=== PATIENT | male | born 1990 | race Caucasian/White ===

== ENCOUNTER 2019-09-17 06:03 | Emergency (ER) | payer OTHER ==
[2019-09-17 06:12] VITALS: RESP 18; TEMP 98
[2019-09-17] MEDS ORDERED: MORPHINE SULFATE 4 MG/ML SYRINGE IVP STA (06:18)
[2019-09-17] MEDS ORDERED: ONDANSETRON 4 MG/2 ML VIAL IVP STA (06:18)
[2019-09-17] MEDS ORDERED: SODIUM CHLORIDE 0.9% 1,000 ML IV ONE (06:18)
[2019-09-17 06:35] LABS: Basophils # (A) 0.1 k/uL (0-0.2); Basophils % (A) 2 %; Eosinophils # (A) 0.1 k/uL (0-0.7); Eosinophils % (A) 1 %; HCT 41.9 % (39.0-53.0); HGB 14.8 gm/dL (13.0-17.5); Lymphocytes # (A) 2.6 k/uL (1.0-4.8); Lymphocytes % (A) 35 %; MCH 31.1 pg (25.0-35.0); MCHC 35.4 g/dL (31.0-37.0); MCV 87.8 fL (80.0-100.0); Mean Platelet Volume 6.1; Monocytes # (A) 0.5 k/uL (0-1.0); Monocytes % (A) 7 %; Neutrophils # (A) 3.9 k/uL (1.3-7.7); Neutrophils % (A) 53 %; Platelet Count 233 k/uL (150-450); RBC 4.77 m/uL (4.30-5.90); RDW 13.1 % (11.5-15.5); WBC 7.4 k/uL (3.8-10.6)
[2019-09-17 06:44] LABS: ALT 105 U/L (21-72); AST 54 U/L (17-59); African American GFR (CKD) >90 (>60 ml/min/1.73 sqM); Albumin 4.1 g/dL (3.5-5.0); Alkaline Phosphatase 68 U/L (38-126); Anion Gap 11 mmol/L; Blood Urea Nitrogen 11 mg/dL (9-20); Calcium 8.9 mg/dL (8.4-10.2); Carbon Dioxide 24 mmol/L (22-30); Chloride 108 mmol/L (98-107); Glucose 89 mg/dL (74-99); Non-African American GFR(CKD) >90 (>60 ml/min/1.73 sqM); Potassium 3.8 mmol/L (3.5-5.1); Sodium 143 mmol/L (137-145); Total Bilirubin 0.6 mg/dL (0.2-1.3); Total Protein 7.3 g/dL (6.3-8.2)
[2019-09-17 06:52] LABS: Alcohol 149 mg/dL
--- NOTE | 2019-09-17 06:54 | CT ---
EXAMINATION TYPE: CT brain wo con DATE OF EXAM: 09/17/2019 COMPARISON: None HISTORY: Sudden onset headache. ETOH CT DLP: 2559.6 mGycm. Automated Exposure Control for Dose Reduction was Utilized. TECHNIQUE: CT scan of the head is performed without contrast. FINDINGS: Ventricles have normal size. There is no mass effect nor midline shift. There is no sign of intracranial hemorrhage. There is no evidence of cerebral edema. The calvarium is intact. There is some mild mucosal thickening in the ethmoid sinuses. IMPRESSION: There is some ethmoid sinusitis. No acute intracranial abnormality.
[2019-09-17] MEDS ORDERED: diphenhydrAMINE 50 MG/ML 1 ML VIAL IVP STA (06:57)
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
[2019-09-17 07:51] VITALS: BP 126/72; PULSE 94
== END 2019-09-17 07:50 | disposition home or self-care (01) ==
LOC: EC 06:03
DX: G44.309 Post-traumatic headache, unspecified, not intractable (principal); F10.129 Alcohol abuse with intoxication, unspecified; F17.200 Nicotine dependence, unspecified, uncomplicated
CPT/HCPCS: 36415; 80053; 85025; 80320; 70450; 99284; 96374; 96375 ×2; 96361; J2270; J1200; J2405

== ENCOUNTER 2020-04-12 13:31 | Emergency (ER) | payer OTHER ==
[2020-04-12 13:54] VITALS: BP 133/86; PULSE 74; TEMP 98
--- NOTE | 2020-04-12 14:16 | ED ---
Lower Extremity Injury HPI - General Chief Complaint: Extremity Injury, Lower Stated Complaint: Foot injury Source: patient Mode of arrival: wheelchair Limitations: physical limitation - History of Present Illness Initial Comments: Patient is a 30-year-old male presenting to emergency Department with a chief complaint of right foot pain. Patient states he was using machine to grind a tree stump when it hit an underground pipe and a piece flew into his foot. Patient states most of the pain is located on the lateral aspect her right foot. He also reports some midfoot tenderness. States he is not able to fully move any of his toes in the right foot except for the hallux. Patient does report a tingling sensation but denies any numbness. Denies any ecchymotic regions or erythema. Denies any lacerations or abrasions. Denies any swelling. Denies taking medication to alleviate the symptoms. - Related Data Allergies Allergy/AdvReac Type Severity Reaction Status Date / Time morphine Allergy Dyspnea Verified 04/12/20 13:55 Penicillins Allergy Unknown Verified 04/12/20 13:55 Childhood Review of Systems ROS Statement: Those systems with pertinent positive or pertinent negative responses have been documented in the HPI. ROS Other: All systems not noted in ROS Statement are negative. Past Medical History Past Medical History: No Reported History History of Any Multi-Drug Resistant Organisms: None Reported Past Surgical History: Orthopedic Surgery Additional Past Surgical History / Comment(s): jaw sx, Left hip x3, Right knee, Right hand, left shoulder Past Psychological History: No Psychological Hx Reported Smoking Status: Current every day smoker Past Alcohol Use History: Occasional Past Drug Use History: None Reported General Exam Limitations: physical limitation General appearance: alert, in no apparent distress Head exam: Present: atraumatic, normocephalic, normal inspection Eye exam: Present: normal appearance, PERRL, EOMI Pupils: Present: normal accommodation ENT exam: Present: normal exam, normal oropharynx, mucous membranes moist. Absent: TM's normal bilaterally, normal external ear exam Neck exam: Present: normal inspection, full ROM. Absent: tenderness Respiratory exam: Present: normal lung sounds bilaterally. Absent: respiratory distress, wheezes, rales Cardiovascular Exam: Present: regular rate, normal rhythm, normal heart sounds. Absent: bradycardia, tachycardia Extremities exam: Present: normal inspection, tenderness (Midfoot and fifth metatarsal tenderness. No medial lateral malleoli tenderness.), normal capillary refill, other (+2 dorsalis pedis and posterior tibialis bilaterally. Sensation intact.). Absent: full ROM (Limited range of motion with plantar and dorsiflexion.), joint swelling Back exam: Present: normal inspection, full ROM. Absent: tenderness Neurological exam: Present: alert, oriented X3 Psychiatric exam: Present: normal affect, normal mood Skin exam: Present: warm, dry, intact, normal color Course Vital Signs 04/12/20 13:49 Temperature 98 F Pulse Rate 74 Respiratory 18 Rate Blood Pressure 133/86 O2 Sat by Pulse 98 Oximetry Medical Decision Making - Medical Decision Making Patient is a 30-year-old male presenting to the emergency department with a chief complaint of right foot pain. On exam patient is limited range of motion with plantar dorsiflexion. There was no signs of trauma. No detectable swelling, erythema or ecchymosis. Neurovascularly intact. X-ray reveals no signs of fractures or dislocations. Patient was offered analgesia, he declined. Patient requesting crutches. Return parameters were thoroughly discussed the patient was understanding and agreeable. Case discussed with physician. Disposition Clinical Impression: Right foot injury, Right foot pain Disposition: HOME SELF-CARE Condition: Stable Instructions (If sedation given, give patient instructions): Foot Contusion (ED) Additional Instructions: Apply cold compress an alternate between Tylenol and Motrin for pain control. Return to emergency department if symptoms worsen. Follow with primary care. Is patient prescribed a controlled substance at d/c from ED?: No Referrals: [facility],Clinic [Primary Care Provider] - 1-2 days Time of Disposition: 14:52
--- NOTE | 2020-04-12 14:44 | XR ---
EXAMINATION TYPE: XR foot complete RT DATE OF EXAM: 04/12/2020 CLINICAL HISTORY: Injury with pain. TECHNIQUE: Frontal, lateral, and oblique images of the right foot are obtained. COMPARISON: None FINDINGS: There is no acute fracture/dislocation evident in the right foot. The joint spaces in the right foot appear within normal limits. The overlying soft tissue appears unremarkable. IMPRESSION: There is no acute fracture or dislocation in the right foot.
[2020-04-12 15:20] VITALS: RESP 17
== END 2020-04-12 15:20 | disposition home or self-care (01) ==
LOC: EC 13:31
DX: S99.921A Unspecified injury of right foot, initial encounter (principal); M79.671 Pain in right foot; R20.2 Paresthesia of skin; F17.200 Nicotine dependence, unspecified, uncomplicated; Z88.0 Allergy status to penicillin; Z88.5 Allergy status to narcotic agent; W22.8XXA Striking against or struck by other objects, initial encounter; Y93.89 Activity, other specified; Y92.89 Other specified places as the place of occurrence of the external cause
CPT/HCPCS: 99283

== ENCOUNTER 2020-11-06 15:41 | Emergency (ER) | payer OTHER ==
[2020-11-06 15:58] VITALS: BP 145/78; PULSE 80; RESP 18; TEMP 98.5
[2020-11-06] MEDS ORDERED: ACET/COD 300 MG/30 MG STARTER PACK 6 TAB BTL PO STA (16:15)
--- NOTE | 2020-11-06 16:28 | XR ---
EXAMINATION TYPE: XR forearm RT DATE OF EXAM: 11/06/2020 COMPARISON: NONE HISTORY: Pain Two views of the forearm demonstrate that the osseous structures appear to be intact and the joint sp aces appear to be preserved. There is no acute fracture or dislocation. IMPRESSION: 1. No acute fracture or dislocation
--- NOTE | 2020-11-06 16:30 | XR ---
EXAMINATION TYPE: XR hand complete RT DATE OF EXAM: 11/06/2020 COMPARISON: NONE HISTORY: Pain TECHNIQUE: Three views are submitted. FINDINGS: The osseous structures are intact. The joint spaces are preserved and there is no acute fracture or dislocation. Benign-appearing cyst involving the head of the third metacarpal. There is a radiopaque foreign body along the volar surface adjacent to the distal phalanx of the first digit IMPRESSION: 1. No definite acute fracture or dislocation if symptoms persist, follow-up study in 7 to 10 days wo uld be suggested. 2. Linear foreign body in the subcutaneous tissues adjacent to the distal phalanx of the first digit
--- NOTE | 2020-11-06 17:01 | ED ---
Upper Extremity HPI - General Chief Complaint: Extremity Injury, Upper Stated Complaint: Arm injury Time Seen by Provider: 11/06/20 16:00 Source: patient, family Mode of arrival: ambulatory Limitations: no limitations - History of Present Illness Initial Comments: 30 oh male presenting today for chief complaint of right forearm pain. Patient states he crushed his right forearm between a sliding machine that was on ice and nother object. he states that the object and him slide 10-15 ft when the machine crushed his forearm. he states it is very tender to move fingers,but he is able to do so. he states he can feel his hand distal to the injury. pt denies injury to chest, shoulder, elbow, abdomen, head, neck or additional areas. admits to pain in hand, wrist and forearm all right sided. pt right hand dominant. - Related Data Allergies Allergy/AdvReac Type Severity Reaction Status Date / Time morphine Allergy Dyspnea Verified 11/06/20 15:58 Penicillins Allergy Unknown Verified 11/06/20 15:58 Childhood Review of Systems ROS Statement: Those systems with pertinent positive or pertinent negative responses have been documented in the HPI. ROS Other: All systems not noted in ROS Statement are negative. Past Medical History Past Medical History: No Reported History History of Any Multi-Drug Resistant Organisms: None Reported Past Surgical History: Orthopedic Surgery Additional Past Surgical History / Comment(s): jaw sx, Left hip x3, Right knee, Right hand, left shoulder Past Psychological History: No Psychological Hx Reported Smoking Status: Current some day smoker Past Alcohol Use History: Occasional Past Drug Use History: None Reported General Exam - General Exam Comments Initial Comments: General: The patient is awake and alert, in no distress Eye: +3 mm pupils are equal, round and reactive to light, extra-ocular movements are intact. No nystagmus. There is normal conjunctiva bilaterally. No signs of icterus. Ears, nose, mouth and throat: There are moist mucous membranes and no oral lesions. Neck: The neck is supple, there is no tenderness or JVD. Cardiovascular: There is a regular rate and rhythm. No murmur, rub or gallop is appreciated. Respiratory: Lungs are clear to auscultation, respirations are non-labored, breath sounds are equal. No wheezes, stridor, rales, or rhonchi. Gastrointestinal: Soft, non-distended, non-tender abdomen without masses or organomegaly noted. There is no rebound or guarding present. Musculoskeletal: on inspection slight indent mid/distal forearm, comparments are very soft and compressible no pain out of proportion. Normal ROM at the wrist with tenderness. tenderness to palpation of the ulnar aspect, no snuffbox tenderness. Strength 5/5 at shoulder elnow and wrist of affected side, equal in unaffected extremity. Sensation intact proximal and distal to injury site. Radial pulses equal bilaterally 2+. Pt is able to range at MCP, DIP and PIP joitns with extnesion and flexion of all 5 digits of the right hand. Neurological: A&O x 3. CN II-XII intact grossly, There are no obvious motor or sensory deficits. Coordination appears grossly intact. Speech is normal. Skin: Skin is warm and dry and no rashes or lesions are noted. Psychiatric: Cooperative, appropriate mood & affect, normal judgment. Limitations: no limitations Course Vital Signs 11/06/20 15:53 Temperature 98.5 F Pulse Rate 80 Respiratory 18 Rate Blood Pressure 145/78 O2 Sat by Pulse 96 Oximetry Medical Decision Making - Medical Decision Making 30yo presenting for crush injury right forearm. XR (-). wrist pain on exam. splinted to in case of occult carpal fracture. pt is to f/u with orthopedic surgery and keep splint in place. pt otherwise shows no clinical findings suggestive of compartment syndrome. She neurovascularly intact. She states he felt better after splinting and was neurovascular intact after the forms pre- patted synthetic splint was applied short arm right wrist/forearm. discussed case wt Dr Gamez who was agreeable to care plan No laceration, thumb foreign body old. Disposition Clinical Impression: Forearm pain, Crushing injury of right forearm, Wrist pain, right Disposition: HOME SELF-CARE Condition: Good Instructions (If sedation given, give patient instructions): Wrist Injury (ED) Additional Instructions: Please use medication as discussed. Please follow-up with family doctor in the next 2 days, if wrist pain persistent please seek orthopedic follow-up. Please return to emergency room if the symptoms increase or worsen or for any other concerns. Is patient prescribed a controlled substance at d/c from ED?: No Referrals: [facility],Clinic [Primary Care Provider] - 1-2 days Sung Pastrana, PAC [PHYSICIAN [employer]] - 1-2 days
== END 2020-11-06 17:22 | disposition home or self-care (01) ==
LOC: EC 15:41
DX: S57.81XA Crushing injury of right forearm, initial encounter (principal); M25.531 Pain in right wrist; F17.200 Nicotine dependence, unspecified, uncomplicated; Z88.0 Allergy status to penicillin; Z88.6 Allergy status to analgesic agent; W23.0XXA Caught, crushed, jammed, or pinched between moving objects, initial encounter; Y92.89 Other specified places as the place of occurrence of the external cause
CPT/HCPCS: 29125; 99283

== ENCOUNTER 2021-01-29 09:09 | Emergency (ER) | payer OTHER ==
[2021-01-29 09:29] VITALS: RESP 18
[2021-01-29] MEDS ORDERED: KETOROLAC 15 MG/ML 1 ML VIAL IM STA (10:09)
[2021-01-29] MEDS ORDERED: CYCLOBENZAPRINE 10 MG TAB PO STA (10:09)
--- NOTE | 2021-01-29 10:13 | ED ---
Back Pain HPI - General Chief Complaint: Back Pain/Injury Stated Complaint: Back Pain Time Seen by Provider: 01/29/21 09:52 Source: patient, family, RN notes reviewed Limitations: no limitations - History of Present Illness Initial Comments: Patient is a 30-year-old male that presents to the emergency department complaining of low back pain bilaterally with difficulty standing up straight due to tightness and pain which results in difficulty walking. He notes that he does have a recent history of [id number] riding but doesn't report that the right was super bumpy or thrush them around. He did note that he also tried changing the track on their little skid steer at work using a crowbar and was twisting and applying the smoke pressure to track up. He states that the pain is a 9 out of 10 constant. He reports a high pain tolerance and trigona work today but called his significant other to the hospital to make sure nothing was seriously wrong. He denied any radiation down his legs bladder or bowel incontinence decreased strength in the legs chest pain shortness of breath headache nausea vomiting diarrhea constipation - Related Data Home Medications Medication Instructions Recorded Confirmed Ibuprofen [Motrin Ib] 200 mg PO Q8H PRN 01/29/21 01/29/21 Previous Rx's Medication Instructions Recorded Ibuprofen [Motrin] 800 mg PO Q6HR #30 tab 01/29/21 predniSONE 50 mg PO DAILY 5 Days #5 tab 01/29/21 Allergies Allergy/AdvReac Type Severity Reaction Status Date / Time morphine Allergy Anaphylaxis Verified 01/29/21 10:27 Penicillins Allergy Unknown Verified 01/29/21 10:27 Childhood Review of Systems ROS Statement: Those systems with pertinent positive or pertinent negative responses have been documented in the HPI. ROS Other: All systems not noted in ROS Statement are negative. Past Medical History Past Medical History: No Reported History History of Any Multi-Drug Resistant Organisms: None Reported Past Surgical History: Orthopedic Surgery Additional Past Surgical History / Comment(s): jaw sx, Left hip x3, Right knee, Right hand, left shoulder Past Psychological History: No Psychological Hx Reported Smoking Status: Current some day smoker Past Alcohol Use History: Occasional Past Drug Use History: None Reported General Exam Limitations: no limitations General appearance: alert, in no apparent distress Head exam: Present: atraumatic, normocephalic, normal inspection Eye exam: Present: normal appearance, PERRL, EOMI. Absent: scleral icterus, conjunctival injection, periorbital swelling ENT exam: Present: normal exam, mucous membranes moist Neck exam: Present: normal inspection. Absent: tenderness, meningismus, lymphadenopathy Respiratory exam: Present: normal lung sounds bilaterally. Absent: respiratory distress, wheezes, rales, rhonchi, stridor Cardiovascular Exam: Present: regular rate, normal rhythm, normal heart sounds. Absent: systolic murmur, diastolic murmur, rubs, gallop, clicks GI/Abdominal exam: Present: soft, normal bowel sounds. Absent: distended, tenderness, guarding, rebound, rigid Extremities exam: Present: normal inspection, full ROM, normal capillary refill, other (Hip level on even while standing). Absent: tenderness, pedal edema, joint swelling, calf tenderness Back exam: Present: normal inspection, paraspinal tenderness (Bilaterally in the lumbar spine area). Absent: full ROM (Due to pain and muscle tightness), vertebral tenderness Neurological exam: Present: alert, oriented X3, CN II-XII intact Psychiatric exam: Present: normal affect, normal mood Skin exam: Present: warm, dry, intact, normal color. Absent: rash Course Vital Signs 01/29/21 09:25 Temperature 98.1 F Pulse Rate 91 Respiratory 18 Rate Blood Pressure 136/90 O2 Sat by Pulse 100 Oximetry Medical Decision Making - Medical Decision Making 30-year-old male with bilateral low back pain. Lumbar spine and bilateral hip x-ray, 15 mg of Toradol, 10 mg of cyclobenzaprine, 125 mg of methylprednisolone ordered. X-rays negative for any acute fractures dislocations. Case discussed with Dr. Roblero, patient can discharge home with follow-up to primary care. - Radiology Data Radiology results: report reviewed, image reviewed X-ray of the lumbar spine: No acute fracture dislocation is seen the lumbar spine. X-ray of the bilateral hips: No acute fractures or dislocations seen. Disposition Clinical Impression: Strain of lumbar region Disposition: HOME SELF-CARE Condition: Stable Instructions (If sedation given, give patient instructions): Acute Low Back Pain (ED) Additional Instructions: Please return to the Emergency Department if symptoms worsen or any other concerns. Please follow-up with primary care, get a referral for chiropractic and physical therapy if needed. Take prescriptions as prescribed, prednisone and Motrin 100% pharmacy. Avoid any strenuous activity, twisting, bending, lifting. Rest ice compress area and Is patient prescribed a controlled substance at d/c from ED?: No Referrals: [facility],Clinic [Primary Care Provider] - 1-2 days Time of Disposition: 11:45
[2021-01-29] MEDS ORDERED: methylPREDNISolone SOD SUCCI 125 MG/2 ML VIAL IM ONE (11:12)
--- NOTE | 2021-01-29 11:31 | XR ---
EXAMINATION TYPE: XR lumbar spine 2 or 3V DATE OF EXAM: 01/29/2021 CLINICAL HISTORY: pain TECHNIQUE: Three views of the lumbar spine are submitted. COMPARISON: None. FINDINGS: There are 5 lumbar type vertebral bodies identified. The lumbar spine shows satisfactory alignment w ithout evidence of acute fracture or dislocation. Vertebral body heights are within normal limits. Disc spaces are within normal limits. The overlying soft tissue appears unremarkable. IMPRESSION: No acute fracture or dislocation is seen in the lumbar spine. ICD 10 NO FRACTURE, INITIAL EVALUATION
--- NOTE | 2021-01-29 11:32 | XR ---
EXAMINATION TYPE: XR Hip Bilateral and AP pelvis DATE OF EXAM: 01/29/2021 CLINICAL HISTORY: pain COMPARISON: 07/15/1712 TECHNIQUE: Single view the pelvis is submitted. Bilateral views of the hips are also submitted. FINDINGS: No evidence for fracture, dislocation or bony lesion. Remote avulsion fracture involving t he lesser trochanter on the left is again noted. Joint spaces are well-preserved. SI joints appear s ymmetric. IMPRESSION: 1. No acute fracture or dislocation seen. ICD 10 NO FRACTURE, INITIAL EVALUATION
[2021-01-29 12:05] VITALS: BP 128/73; PULSE 87; TEMP 98.2
== END 2021-01-29 12:05 | disposition home or self-care (01) ==
LOC: EC 09:09
DX: S39.012A Strain of muscle, fascia and tendon of lower back, initial encounter (principal); F17.200 Nicotine dependence, unspecified, uncomplicated; Z88.5 Allergy status to narcotic agent; Z88.0 Allergy status to penicillin; X50.9XXA Other and unspecified overexertion or strenuous movements or postures, initial encounter
CPT/HCPCS: 96372 ×2; 99283; 72100; 73521; J2930; J1885

== ENCOUNTER 2022-04-21 12:13 | Emergency (ER) | payer OTHER ==
[2022-04-21 12:23] VITALS: BP 141/83; PULSE 80; RESP 16; TEMP 97.7
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
[2022-04-21] MEDS ORDERED: KETOROLAC 15 MG/ML 1 ML VIAL IM STA (15:13)
[2022-04-21] MEDS ORDERED: HYDROcodone/APAP 5-325MG 1 EACH TAB PO STA (15:13)
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
== END 2022-04-21 16:25 | disposition home or self-care (01) ==
LOC: EC 12:13
DX: S30.1XXA Contusion of abdominal wall, initial encounter (principal); S70.02XA Contusion of left hip, initial encounter; F17.200 Nicotine dependence, unspecified, uncomplicated; V86.59XA Driver of other special all-terrain or other off-road motor vehicle injured in nontraffic accident, initial encounter; Y92.410 Unspecified street and highway as the place of occurrence of the external cause
CPT/HCPCS: 72100; 73502; 74177; 99284; 96372; J1885; Q9967; 96374

== ENCOUNTER → 2022-07-31 | Outpatient (CLI) | payer OTHER ==
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
== END | disposition home or self-care (01) ==
LOC: RADMRIMAIN 09:35
PROVIDERS: ATTEND Orthopaedic Surgery
DX: S83.242A Other tear of medial meniscus, current injury, left knee, initial encounter (principal); S83.412A Sprain of medial collateral ligament of left knee, initial encounter

== ENCOUNTER 2022-08-14 09:12 | Day surgery (SDC) | payer OTHER ==
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
[2022-08-13 11:17] VITALS: BMI 29.5
[~2022-08-14 09:12] MED LIST: DEXAMETHASONE SOD PHOSPHATE 4 MG/ML 1 ML VIAL IV ONE; LACTATED RINGERS 1,000 ML IV SCH; LIDOCAINE 1% (10MG/ML) FOR IV START INTRADERMA PRN; MIDAZOLAM 2 MG/2 ML VIAL IV PRN; ONDANSETRON 4 MG/2 ML VIAL IVP ONE
[2022-08-14] MEDS ORDERED: fentaNYL (PF) 50 MCG/ML 2 ML AMP ONE (11:25)
[2022-08-14] MEDS ORDERED: PROPOFOL 10 MG/ML 20 ML VIAL IV ONE (11:25)
[2022-08-14] MEDS ORDERED: HYDROmorphone (PF) 1 MG/ML ONE (11:25)
[2022-08-14] MEDS ORDERED: MIDAZOLAM 2 MG/2 ML VIAL ONE (11:25)
[2022-08-14] MEDS ORDERED: LIDOCAINE 2% INJ 20 MG/ML (2 ML VIAL) ONE (11:25)
[2022-08-14] MEDS ORDERED: LACTATED RINGERS 1,000 ML IV ONE (11:53)
[2022-08-14] MEDS ORDERED: EPINEPHrine (PF) 1 ML in SODIUM CHLORIDE 0.9% IRRIGATIO 3,000 ML IRRIGATION ONE (11:56)
--- NOTE | 2022-08-14 12:16 | P.OP ---
Date of Procedure: 08/14/22 Preoperative Diagnosis: Left knee internal derangement Postoperative Diagnosis: Left knee posterior medial meniscal tear Procedure(s) Performed: Left knee arthroscopic partial medial meniscectomy Anesthesia: ROSETTAA Surgeon: Berlin Mathur Estimated Blood Loss (ml): 10 Pathology: none sent Condition: stable Disposition: PACU Indications for Procedure: The patient's a 32-year-old male who presents significant left knee pain and mechanical symptoms after a recent injury. Upon evaluation he is noted of evidence of a symptomatic medial meniscal tear. This was confirmed by MRI. A discussion of the risks and benefits of operative intervention was made with patient. He opted to proceed. Operative risks to include infection, neurovascular injury, development of blood clots, possible incomplete resolution of symptoms, possible worsening symptoms and need for subsequent procedures was discussed. Informed consent was obtained. Operative Findings: as below Description of Procedure: The patient was brought to the operating room, and after induction of general anesthesia examined the left knee. Collaterals were stable, Brandee was negative, and posterior drawer was negative. The left lower extremity was prepped and draped in a normal fashion. A superior lateral portal was made through a 3 mm skin incision superior and lateral to the patella. This was used for outflow. A lateral portal was made through a 5 mm vertical skin incision lateral to the patella tendon above the joint line. Diagnostic arthroscopy was performed. On inspection of the medial compartment, and oblique tear involving the posterior portion of the medial meniscus in the white-white junction was noted. This extended from the posterior to middle one third. This was debrided back to stable base with straight baskets and a motorized shaver. The remaining medial meniscus was stable and intact. On inspection of the notch, the anterior cruciate ligament appeared to be intact. On inspection of the lateral compartment, no significant cartilage or meniscal pathology was noted. On inspection of the patellofemoral articulation, there is mild chondromalacia however no loose chondral fragments. The gutters were clear debris. The knee was then thoroughly irrigated. The portals were closed with Steri-Strips. A sterile dressing was applied in addition to a compression stocking. The patient was awoken from general anesthesia and transferred to recovery room in good condition. Blood loss was estimated at 10 mL. No complications were incurred.
[2022-08-14] MEDS: HYDROmorphone 0.5 MG/0.5 ML SYRINGE IVP PRN ×3 (12:24→13:04)
[2022-08-14 12:34] VITALS: TEMP 97
[2022-08-14] MEDS ORDERED: MEPERIDINE 50 MG/ML SYRINGE IVP ONE ×2 (12:34→12:40)
[2022-08-14] MEDS ORDERED: KETOROLAC 15 MG/ML 1 ML VIAL IVP ONE (12:46)
[2022-08-14 13:22] VITALS: RESP 20
[2022-08-14 13:43] VITALS: BP 131/81; PULSE 86
== END 2022-08-14 13:57 | disposition home or self-care (01) ==
LOC: OR 09:12
PROVIDERS: ATTEND Orthopaedic Surgery
DX: S83.242A Other tear of medial meniscus, current injury, left knee, initial encounter (principal); F17.200 Nicotine dependence, unspecified, uncomplicated; F10.10 Alcohol abuse, uncomplicated; Z98.890 Other specified postprocedural states; Z79.899 Other long term (current) drug therapy; Z88.5 Allergy status to narcotic agent; Z88.0 Allergy status to penicillin
CPT/HCPCS: 29881; J2250; J1100; J2175; J0690; J2405; J0171; J3010; J1170 ×2; J1885; J2704; J2001

== ENCOUNTER → 2023-06-03 | Outpatient (CLI) | payer OTHER ==
--- NOTE | 2023-06-04 11:55 | MR ---
EXAMINATION TYPE: MR shoulder RT wo con DATE OF EXAM: 06/03/2023 9:35 PM COMPARISON: NONE HISTORY: Right shoulder pain. TECHNIQUE: Multiplanar multispin echo imaging of the right shoulder was performed. FINDINGS: Rotator cuff : Mild heterogeneity of the supraspinatus tendon compatible chronic tendinopathy. Small focus of increased signal at the insertion of the supraspinatus tendon reflect a tiny partial tear. R emaining constituents of the rotator cuff are intact. Bursa: No bursal effusion or thickening is seen. Musculature: There is no muscular tear, contusion, or atrophy. Acromioclavicular joint : Moderate AC joint arthropathy with lateral downsloping of the acromion resu lting in mild impingement. Osseous structures : There are no fractures or regions of abnormal bone marrow signal intensity. Smal l bone island humeral head. Long biceps tendon : The biceps tendon is normally situated within the bicipital groove. No complete or partial biceps tendon tear is present. Glenohumeral Joint fluid : There is no glenohumeral joint effusion. Cartilage and Bone : No focal hyaline cartilage defects are noted. No Hill-Sachs, reverse Hill-Sachs, or bony Bankart lesions are seen. Labrum : There are no SLAP or soft tissue Bankart lesions. No paralabral cysts are seen. OTHER FINDINGS : none IMPRESSION: 1. Chronic tendinopathy supraspinatus tendon with small partial tear at the humeral insertion of the supraspinatus. Lateral downsloping of the acromion resulting in mild impingement.
== END | disposition home or self-care (01) ==
LOC: RADMRIMAIN 10:08
PROVIDERS: ATTEND Orthopaedic Surgery
DX: M75.111 Incomplete rotator cuff tear or rupture of right shoulder, not specified as traumatic (principal); M25.811 Other specified joint disorders, right shoulder

== ENCOUNTER 2023-12-21 15:02 | Emergency (ER) | payer OTHER ==
[2023-12-21 15:12] VITALS: TEMP 98.1
--- NOTE | 2023-12-21 15:30 | ED ---
General Adult HPI - General Chief complaint: Abdominal Pain Stated complaint: Testicular Pain Time Seen by Provider: 12/21/23 15:11 Source: patient, RN notes reviewed Mode of arrival: ambulatory Limitations: no limitations - History of Present Illness Initial comments: 33 year old male presents to the emergency department for evaluation of testicular pain. He states that this has been ongoing for around 2 weeks. He states that it initially started after lifting something heavy. He states that it subsided temporarily but then he lifted something heavy again at work 2 days ago and the pain has been worse since then. He does note some swelling. Patient also notes frequent bowel movements over the past 2-3 days. Passing flatulence normally. Denies nausea, vomiting. - Related Data Home Medications Medication Instructions Recorded Confirmed HYDROcodone/APAP 5-325MG [[place] 1 tab PO TID PRN 08/13/22 08/14/22 5-325] Previous Rx's Medication Instructions Recorded HYDROcodone/APAP 5-325MG [[place] 1 tab PO Q6HR PRN #21 tab 08/14/22 5-325] Allergies Allergy/AdvReac Type Severity Reaction Status Date / Time bee venom protein (honey bee) Allergy Severe Tongue and Verified 12/21/23 15:08 throat swelling morphine Allergy Anaphylaxis Verified 12/21/23 15:08 Penicillins Allergy Unknown Verified 12/21/23 15:08 Childhood Review of Systems ROS Statement: Those systems with pertinent positive or pertinent negative responses have been documented in the HPI. ROS Other: All systems not noted in ROS Statement are negative. Past Medical History Past Medical History: No Reported History Additional Past Medical History / Comment(s): hepatitis C., Hx of concussions., Injury with pain left knee- wearing immobilizer and using crutches., hx of injuries in [place] with surgeries. History of Any Multi-Drug Resistant Organisms: None Reported Past Surgical History: Orthopedic Surgery Additional Past Surgical History / Comment(s): jaw sx, Left hip x3, Right knee, Right hand, left shoulder., (hx of injuries in [place]) Past Anesthesia/Blood Transfusion Reactions: No Reported Reaction Past Psychological History: No Psychological Hx Reported Smoking Status: Current every day smoker Past Alcohol Use History: Occasional Past Drug Use History: None Reported - Past Family History Mother Family Medical History: No Reported History General Exam Limitations: no limitations General appearance: alert, in no apparent distress Head exam: Present: atraumatic, normocephalic, normal inspection Eye exam: Present: normal appearance, PERRL, EOMI. Absent: scleral icterus, conjunctival injection, periorbital swelling ENT exam: Present: normal exam, mucous membranes moist Neck exam: Present: normal inspection. Absent: tenderness, meningismus, lymphadenopathy Respiratory exam: Present: normal lung sounds bilaterally. Absent: respiratory distress, wheezes, rales, rhonchi, stridor Cardiovascular Exam: Present: regular rate, normal rhythm, normal heart sounds. Absent: systolic murmur, diastolic murmur, rubs, gallop, clicks GI/Abdominal exam: Present: soft, normal bowel sounds. Absent: distended, tenderness, guarding, rebound, rigid exam: Present: testicular tenderness. Absent: urethral discharge, scrotal swelling, vertical testicular lie Extremities exam: Present: full ROM, tenderness (right elbow), other (bursitis to left elbow) Neurological exam: Present: alert, oriented X3 Psychiatric exam: Present: normal affect, normal mood Skin exam: Present: warm, dry, intact, normal color. Absent: rash Course Vital Signs 12/21/23 12/21/23 15:04 18:18 Temperature 98.1 F Pulse Rate 105 H 80 Respiratory 18 16 Rate Blood Pressure 150/99 136/97 O2 Sat by Pulse 97 97 Oximetry Medical Decision Making - Medical Decision Making Was pt. sent in by a medical professional or institution ([facility], CABLE TOOL OPERATOR, urgent care, hospital, or assisted...) When possible be specific @ -No Did you speak to anyone other than the patient for history (EMS, parent, family, police, friend...)? What history was obtained from this source @ -No Did you review nursing and triage notes (agree or disagree)? Why? @ -I reviewed and agree with nursing and triage notes Were old charts reviewed (outside hosp., previous admission, EMS record, old EKG, old radiological studies, urgent care reports/EKG's, assisted records)? Report findings @ -No old charts were reviewed Differential Diagnosis (chest pain, altered mental status, abdominal pain women, abdominal pain men, vaginal bleeding, weakness, fever, dyspnea, syncope, headache, dizziness, GI bleed, back pain, seizure, CVA, palpatations, mental health, musculoskeletal)? @ -Testicular torsion, orchitis, epididymitis, this list is not all inclusive EKG interpreted by me (3pts min.). @ -None X-rays interpreted by me (1pt min.). @ -X-ray of the right elbow shows no evidence of acute fracture CT interpreted by me (1pt min.). @ -None done U/S interpreted by me (1pt. min.). @ -Scrotal ultrasound shows normal blood flow to both testicles, left-sided varicocele What testing was considered but not performed or refused? (CT, X-rays, U/S, labs)? Why? @ -None What meds were considered but not given or refused? Why? @ -None Did you discuss the management of the patient with other professionals (professionals i.e. , PA, CABLE TOOL OPERATOR, lab, RT, psych nurse, social work supervisor, payroll tax analyst, teacher, navigating officer, case making machine operator)? Give summary @ -No Was smoking cessation discussed for >3mins.? @ -No Was critical care preformed (if so, how long)? @ -No Were there social determinants of health that impacted care today? How? (Homelessness, low income, unemployed, alcoholism, drug addiction, transpor tation, low edu. Level, literacy, decrease access to med. care, [facility], rehab)? @ -No Was there de-escalation of care discussed even if they declined (Discuss DNR or withdrawal of care, Hospice)? DNR status @ -No What co-morbidities impacted this encounter? (DM, HTN, Smoking, COPD, CAD, Cancer, CVA, ARF, Chemo, Hep., AIDS, mental health diagnosis, sleep apnea, morbid obesity)? @ -None Was patient admitted / discharged? Hospital course, mention meds given and route, prescriptions, significant lab abnormalities, going to OR and other pertinent info. @ -Discharged. Patient presented to the emergency department for evaluation of testicular pain this has been going on for 2 weeks. He states it is worse after lifting heavy 2 days ago. He reports normal bowel movements and passing flatulence. He denies fever. On examination, there is no visible penile discharge, tenderness to palpation of the testicles. Laboratory studies obtained including CBC, CMP, UA which were unremarkable. Gonorrhea chlamydia in the urine pending. Ultrasound obtained which shows a left-sided varicocele, otherwise unremarkable. Discussed findings with patient. Advised to follow-up with urology. Patient understanding and agreeable with plan. Patient stable at time of discharge. Case discussed with Dr. Morales. Undiagnosed new problem with uncertain prognosis? @ -No Drug Therapy requiring intensive monitoring for toxicity (Heparin, Nitro, Insulin, Cardizem)? @ -No Were any procedures done? @ -No Diagnosis/symptom? @ -Testicular pain, varicoceles Acute, or Chronic, or Acute on Chronic? @ -Acute Uncomplicated (without systemic symptoms) or Complicated (systemic symptoms)? @ -Uncomplicated Side effects of treatment? @ -No Exacerbation, Progression, or Severe Exacerbation? @ -No Poses a threat to life or bodily function? How? (Chest pain, [place], [place], pneumonia, PE, COPD, DKA, ARF, appy, cholecystitis, CVA, Diverticulitis, Homicidal, Suicidal, threat to staff... and all critical care pts) @ -No - Lab Data Result diagrams: 12/21/23 15:29 12/21/23 15:29 Lab Results 12/21/23 12/21/23 12/21/23 Range/Units 15:29 15:29 15:29 WBC 8.8 (3.8-10.6) k/uL RBC 5.30 (4.30-5.90) m/uL Hgb 15.4 (13.0-17.5) gm/dL Hct 45.9 (39.0-53.0) % MCV 86.6 (80.0-100.0) fL MCH 29.0 (25.0-35.0) pg MCHC 33.6 (31.0-37.0) g/dL RDW 13.2 (11.5-15.5) % Plt Count 311 (150-450) k/uL MPV 8.0 Neutrophils % 54 % Lymphocytes % 34 % Monocytes % 7 % Eosinophils % 2 % Basophils % 1 % Neutrophils # 4.7 (1.3-7.7) k/uL Lymphocytes # 3.0 (1.0-4.8) k/uL Monocytes # 0.6 (0-1.0) k/uL Eosinophils # 0.2 (0-0.7) k/uL Basophils # 0.1 (0-0.2) k/uL Sodium 138 (137-145) mmol/L Potassium 4.1 (3.5-5.1) mmol/L Chloride 104 (98-107) mmol/L Carbon Dioxide 25 (22-30) mmol/L Anion Gap 9 mmol/L BUN 13 (9-20) mg/dL Creatinine 0.92 (0.66-1.25) mg/dL Est GFR (CKD-EPI)AfAm >90 (>60 ml/min/1.73 sqM) Est GFR (CKD-EPI)NonAf >90 (>60 ml/min/1.73 sqM) Glucose 96 (74-99) mg/dL Calcium 9.9 (8.4-10.2) mg/dL Total Bilirubin 0.3 (0.2-1.3) mg/dL AST 29 (17-59) U/L ALT 36 (4-49) U/L Alkaline Phosphatase 96 (38-126) U/L Total Protein 7.7 (6.3-8.2) g/dL Albumin 4.5 (3.5-5.0) g/dL Amylase 52 (30-110) U/L Lipase 59 (23-300) U/L Urine Color Light Yellow Urine Appearance Clear (Clear) Urine pH 6.0 (5.0-8.0) Ur Specific [place] 1.017 (1.001-1.035) Urine Protein Negative (Negative) Urine Glucose (UA) Negative (Negative) Urine Ketones Negative (Negative) Urine Blood Negative (Negative) Urine Nitrite Negative (Negative) Urine Bilirubin Negative (Negative) Urine Urobilinogen <2.0 (<2.0) mg/dL Ur Leukocyte Esterase Negative (Negative) Disposition Clinical Impression: Testicular pain, Varicocele Disposition: HOME SELF-CARE Condition: Stable Additional Instructions: Please follow up with urology. Return to the emergency department for new or worsening symptoms. Is patient prescribed a controlled substance at d/c from ED?: No Referrals: [facility],Clinic [REFERRING] - 1-2 days Harpreet Lopez MD [STAFF PHYSICIAN] - 1-2 days
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
[2023-12-21 17:02] LABS: Appearance,Urine Clear (Clear); Bilirubin,Urine Negative (Negative); Blood,Urine Negative (Negative); Color,Urine Light Yellow; Glucose,Urine (UA) Negative (Negative); Ketones,Urine Negative (Negative); Leukocyte Esterase,Urine Negative (Negative); Nitrite,Urine Negative (Negative); Protein,Urine Negative (Negative); Specific Gravity,Urine 1.017 (1.001-1.035); Urobilinogen,Urine <2.0 mg/dL (<2.0)
[2023-12-21 17:04] LABS: Basophils # (A) 0.1 k/uL (0-0.2); Basophils % (A) 1 %; Eosinophils # (A) 0.2 k/uL (0-0.7); Eosinophils % (A) 2 %; HCT 45.9 % (39.0-53.0); HGB 15.4 gm/dL (13.0-17.5); Lymphocytes % (A) 34 %; MCHC 33.6 g/dL (31.0-37.0); MCV 86.6 fL (80.0-100.0); Monocytes # (A) 0.6 k/uL (0-1.0); Monocytes % (A) 7 %; Neutrophils # (A) 4.7 k/uL (1.3-7.7); Neutrophils % (A) 54 %; Platelet Count 311 k/uL (150-450); RDW 13.2 % (11.5-15.5); WBC 8.8 k/uL (3.8-10.6)
[2023-12-21 17:13] LABS: ALT 36 U/L (4-49); AST 29 U/L (17-59); African American GFR (CKD) >90 (>60 ml/min/1.73 sqM); Albumin 4.5 g/dL (3.5-5.0); Alkaline Phosphatase 96 U/L (38-126); Amylase 52 U/L (30-110); Anion Gap 9 mmol/L; Blood Urea Nitrogen 13 mg/dL (9-20); Calcium 9.9 mg/dL (8.4-10.2); Carbon Dioxide 25 mmol/L (22-30); Chloride 104 mmol/L (98-107); Glucose 96 mg/dL (74-99); Lipase 59 U/L (23-300); Non-African American GFR(CKD) >90 (>60 ml/min/1.73 sqM); Potassium 4.1 mmol/L (3.5-5.1); Sodium 138 mmol/L (137-145); Total Bilirubin 0.3 mg/dL (0.2-1.3); Total Protein 7.7 g/dL (6.3-8.2)
--- NOTE | 2023-12-21 17:23 | US ---
EXAMINATION TYPE: US scrotum with doppler. Grayscale and color Doppler Duplex imaging performed of aguila barillas scrotum. DATE OF EXAM: 12/21/2023 COMPARISON: NONE CLINICAL INDICATION: Male, 33 years old with history of pain, swelling; Rt testicle pain x 2 weeks, w orse last night EXAM MEASUREMENTS: TESTICLES: Right Testicle: 4.0x2.5x3.1 cm Left Testicle: 4.2x2.3x2.8 cm EPIDIDYMIS HEAD: Right Epididymis: 0.8 cm Left Epididymis: 1.3 cm Doppler performed to assess for testicular vascularity; good bilateral color flow and waveforms are s een. There is no evidence of testicular torsion. Presence of hydroceles: no Presence of varicoceles: left side IMPRESSION: 1. No intratesticular mass. 2. No testicular torsion. 3. No epididymal abnormalities 3. Small left varicocele.
[2023-12-21] MEDS: KETOROLAC 15 MG/ML 1 ML VIAL IVP STA (17:38)
[2023-12-21 18:33] VITALS: BP 136/97; PULSE 80; RESP 16
== END 2023-12-21 18:18 | disposition home or self-care (01) ==
LOC: EC 15:02
DX: I86.1 Scrotal varices (principal); M70.32 Other bursitis of elbow, left elbow; M25.521 Pain in right elbow; F17.200 Nicotine dependence, unspecified, uncomplicated; Z88.0 Allergy status to penicillin; Z88.5 Allergy status to narcotic agent; Z91.030 Bee allergy status; X50.0XXA Overexertion from strenuous movement or load, initial encounter
CPT/HCPCS: 36415; 80053; 82150; 83690; 85025; 81003; 73080; 93975; 76870; 99284; 96374; J1885; 87491

== ENCOUNTER 2024-02-12 11:15 | Emergency (ER) | payer OTHER ==
--- NOTE | 2024-02-12 11:42 | ED ---
Skin/Abscess/FB HPI - General Chief complaint: Skin/Abscess/Foreign Body Stated complaint: R arm lac Time Seen by Provider: 02/12/24 11:40 Source: patient, RN notes reviewed Mode of arrival: ambulatory Limitations: no limitations - History of Present Illness Initial comments: 33-year-old male presented to the ER with chief complaint of fishhook in right forearm. He states he was loading his boat onto the trailer and accidentally left the lure on the fishing pole. He states he walked by and the lure stabbed his right forearm. He tried to get it free but was unable to. He states when he moves his fingers he can feel the tightening of the muscle and lure moving. Denies any paresthesias or other injuries. Tetanus status unknown. - Related Data Home Medications Medication Instructions Recorded Confirmed HYDROcodone/APAP 5-325MG [[place] 1 tab PO TID PRN 08/13/22 08/14/22 5-325] Previous Rx's Medication Instructions Recorded HYDROcodone/APAP 5-325MG [[place] 1 tab PO Q6HR PRN #21 tab 08/14/22 5-325] Allergies Allergy/AdvReac Type Severity Reaction Status Date / Time bee venom protein (honey bee) Allergy Severe Tongue and Verified 02/12/24 11:38 throat swelling morphine Allergy Anaphylaxis Verified 02/12/24 11:38 Penicillins Allergy Unknown Verified 02/12/24 11:38 Childhood Review of Systems ROS Statement: Those systems with pertinent positive or pertinent negative responses have been documented in the HPI. ROS Other: All systems not noted in ROS Statement are negative. Past Medical History Past Medical History: No Reported History Additional Past Medical History / Comment(s): hepatitis C., Hx of concussions., Injury with pain left knee- wearing immobilizer and using crutches., hx of injuries in [place] with surgeries. History of Any Multi-Drug Resistant Organisms: None Reported Past Surgical History: Orthopedic Surgery Additional Past Surgical History / Comment(s): jaw sx, Left hip x3, Right knee, Right hand, left shoulder., (hx of injuries in [place]) Past Anesthesia/Blood Transfusion Reactions: No Reported Reaction Past Psychological History: No Psychological Hx Reported Smoking Status: Current every day smoker Past Alcohol Use History: Occasional Past Drug Use History: None Reported - Past Family History Mother Family Medical History: No Reported History General Exam - General Exam Comments Initial Comments: Visual Physical Exam Vital signs reviewed General: Well-appearing, nontoxic, no acute distress. Head: Normocephalic, atraumatic Eyes: PERRLA, EOMI ENT: Airway patent Chest: Nonlabored breathing Skin: No visual rash, normal skin tone Neuro: Alert and oriented 3 Musculoskeletal: Fishing lure in right forearm. No active bleeding. Patient has full active range of motion. Limitations: no limitations General appearance: alert, in no apparent distress Head exam: Present: atraumatic, normocephalic, normal inspection Eye exam: Present: normal appearance, PERRL, EOMI. Absent: scleral icterus, conjunctival injection, periorbital swelling Respiratory exam: Present: normal lung sounds bilaterally. Absent: respiratory distress, wheezes, rales, rhonchi, stridor Cardiovascular Exam: Present: regular rate, normal rhythm, normal heart sounds. Absent: systolic murmur, diastolic murmur, rubs, gallop, clicks Extremities exam: Present: other (Fishing lure penetrating right forearm. No active bleeding. 2+ right radial pulse. Sensation intact. Full active range of motion.) Neurological exam: Present: alert, oriented X3, CN II-XII intact Skin exam: Present: warm, dry, intact, normal color. Absent: rash Course Vital Signs 02/12/24 11:36 Temperature 97.5 F L Pulse Rate 98 Respiratory 16 Rate Blood Pressure 145/96 O2 Sat by Pulse 97 Oximetry Procedures - [place]gein Body Removal Soft Tissue Consent Obtained: verbal consent Foreign Body Suspected: Fish Hook Foreign Body Removed: yes Foreign Body Removal Technique: Other (wireless construction manager and needle drivers) Complications: pain (patient refused lidocaine ) Patient Tolerated Procedure: well, no complications Medical Decision Making - Medical Decision Making I performed the quick note portion of this chart. Electronically signed by Ondina Mendoza PA-C Was pt. sent in by a medical professional or institution ([facility], DIFFUSION OPERATOR, urgent care, hospital, or jail...) When possible be specific @ -No Did you speak to anyone other than the patient for history (EMS, parent, family, police, friend...)? What history was obtained from this source @ -No Did you review nursing and triage notes (agree or disagree)? Why? @ -I reviewed and agree with nursing and triage notes Were old charts reviewed (outside hosp., previous admission, EMS record, old EKG, old radiological studies, urgent care reports/EKG's, jail records)? Report findings @ -No old charts were reviewed Differential Diagnosis (chest pain, altered mental status, abdominal pain women, abdominal pain men, vaginal bleeding, weakness, fever, dyspnea, syncope, headache, dizziness, GI bleed, back pain, seizure, CVA, palpatations, mental health, musculoskeletal)? @ -Foreign body, laceration, abrasion this list is not meant to be all- inclusive EKG interpreted by me (3pts min.). @ -None X-rays interpreted by me (1pt min.). @ -None done CT interpreted by me (1pt min.). @ -None done U/S interpreted by me (1pt. min.). @ -None done What testing was considered but not performed or refused? (CT, X-rays, U/S, labs)? Why? @ -None What meds were considered but not given or refused? Why? @ -None Did you discuss the management of the patient with other professionals (professionals i.e. , PA, DIFFUSION OPERATOR, lab, RT, psych nurse, drug abuse social worker, sewer system supervisor, teacher, public records officer, catalytic case operator)? Give summary @ -No Was smoking cessation discussed for >3mins.? @ -No Was critical care preformed (if so, how long)? @ -No Were there social determinants of health that impacted care today? How? (Homelessness, low income, unemployed, alcoholism, drug addiction, transportation, low edu. Level, literacy, decrease access to med. care, senior care, re hab)? @ -No Was there de-escalation of care discussed even if they declined (Discuss DNR or withdrawal of care, Hospice)? DNR status @ -No What co-morbidities impacted this encounter? (DM, HTN, Smoking, COPD, CAD, Cancer, CVA, ARF, Chemo, Hep., AIDS, mental health diagnosis, sleep apnea, morbid obesity)? @ -None Was patient admitted / discharged? Hospital course, mention meds given and route, prescriptions, significant lab abnormalities, going to OR and other pertinent info. @ -Discharge. 33-year-old male presenting to the ER with a chief complaint of fishhook in the right forearm. Patient originally seen by myself is a quick note. Patient with physical exam completed. Vitals stable. Patient in no signs of acute distress and nontoxic-appearing. Lutz removed using wire cutters, needle drivers and 11 blade scalpel to puncture skin for hook to pass. Tetanus updated. Patient tolerated procedure well. Return parameters discussed. Patient discharged in stable condition with follow-up to PCP. Patient verbally expressed understanding and agreement with care plan. Case discussed with ED attending, Dr. Thibodeaux. Undiagnosed new problem with uncertain prognosis? @ -No Drug Therapy requiring intensive monitoring for toxicity (Heparin, Nitro, Insulin, Cardizem)? @ -No Were any procedures done? @ -Yes Diagnosis/symptom? @ -Lutz in right forearm Acute, or Chronic, or Acute on Chronic? @ -Acute Uncomplicated (without systemic symptoms) or Complicated (systemic symptoms)? @ -Uncomplicated Side effects of treatment? @ -No Exacerbation, Progression, or Severe Exacerbation? @ -No Poses a threat to life or bodily function? How? (Chest pain, [place], [place], pneumonia, PE, COPD, DKA, ARF, appy, cholecystitis, CVA, Diverticulitis, Homicidal, Suicidal, threat to staff... and all critical care pts) @ -No Disposition Clinical Impression: Fish hook in upper extremity Disposition: HOME SELF-CARE Condition: Stable Additional Instructions: Follow-up with PCP. Return to the ER for any new or worsening concerns. Is patient prescribed a controlled substance at d/c from ED?: No Referrals: [facility],Clinic [Primary Care Provider] - 1-2 days Time of Disposition: 12:57
[2024-02-12 12:12] VITALS: BP 145/96; PULSE 98; RESP 16; TEMP 97.5
[2024-02-12] MEDS: DIPH,PERTUS(ACELL)TETVAC-LF 0.5 ML VIAL IM ONE (13:00)
== END 2024-02-12 13:10 | disposition home or self-care (01) ==
LOC: EC 11:15
DX: S50.851A Superficial foreign body of right forearm, initial encounter (principal); F17.200 Nicotine dependence, unspecified, uncomplicated; Z88.0 Allergy status to penicillin; Z91.030 Bee allergy status; Z23 Encounter for immunization; X50.0XXA Overexertion from strenuous movement or load, initial encounter
CPT/HCPCS: 10120; 90471; 90715; 99282

== ENCOUNTER 2024-06-07 17:30 | Emergency (ER) | payer OTHER ==
[2024-06-07] MEDS ORDERED: LORazepam 2 MG/ML INJ ONE ×2 (17:54→21:00)
[2024-06-07] MEDS ORDERED: HYDROmorphone 1 MG/ML 1 ML SYRINGE ONE ×3 (17:54→20:59)
[2024-06-07] MEDS ORDERED: SODIUM CHLORIDE 0.9% 1,000 ML BAG ONE ×2 (18:00→20:00)
[2024-06-07] MEDS ORDERED: PROPOFOL 10 MG/ML 20 ML VIAL IV ONE (19:46)
[2024-06-07] MEDS ORDERED: KETAMINE 50 MG/ML 10 ML VIAL ONE (19:47)
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
== END 2024-06-07 21:30 | disposition short-term general hospital (02) ==
LOC: EC 17:30
CPT/HCPCS: 96361; 96374; 96375; 99284

== ENCOUNTER 2024-07-21 11:06 | Emergency (ER) | payer OTHER ==
[2024-07-21 11:12] VITALS: BP 160/93; PULSE 94; RESP 18; TEMP 97.8
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
== END 2024-07-21 13:30 | disposition home or self-care (01) ==
LOC: EC 11:06
CPT/HCPCS: 99283